=== PATIENT | male | born 1995 | race Caucasian/White ===

== ENCOUNTER 2020-07-03 09:29 | Emergency (ER) | payer OTHER ==
--- NOTE | 2020-07-03 10:13 | TELE ---
HPI - General Reason For Visit: COVID19 TESTING Time Seen by Provider: 07/03/20 10:09 History Source: Patient Exam Limitations: Clinical Condition - History of Present Illness Timing/Duration: unsure Associated Symptoms: reports: denies symptoms 07/03/20 10:10 Patient with no significant past medical history present to [facility] urgent care for COVID testing status post being scheduled for endoscopy and needs testing done 5 days prior to endoscopy. Patient report having endoscopy done on Friday. Denies fever, cough, shortness of breath. Denies recent travel or sick contact. Denies any other symptoms Review of Systems - Review of Systems Able to Perform ROS?: Yes Constitutional: No: Chills, Fever, Malaise HEENTM: No: Symptoms Reported, See HPI, Eye Pain, Blurred Vision, Tearing, Recent change in vision, Double Vision, Cataracts, Ear Pain, Ocular Prothesis, Ear Discharge, Nose Pain, Nose Congestion, Tinnitus, Nose Bleeding, Hearing Loss, Throat Pain, Throat Swelling, Mouth Pain, Dental Problems, Difficulty Swallowing, Mouth Swelling, Other Respiratory: No: Symptoms reported, See HPI, Cough, Orthopnea, Shortness of Breath, SOB with Exertion, SOB at Rest, Stridor, Wheezing, Productive cough, Hemoptysis, Other Cardiac (ROS): No: Symptoms Reported, See HPI, Chest Pain, Edema, Irregular Heart Rate, Lightheadedness, Palpitations, Syncope, Chest Tightness, Other ABD/GI: No: Symptoms Reported, Nausea, Vomiting Musculoskeletal: No: Symptoms Reported Integumentary: No: Symptoms Reported Neurological: No: Symptoms reported All Other Systems: Reviewed and Negative *Physical Exam - Physical Exam General Appearance: Yes: Nourished, Appropriately Dressed. No: Apparent Distress HEENT: positive: Normal ENT Inspection Respiratory/Chest: negative: Respiratory Distress, Accessory Muscle Use Musculoskeletal: positive: Normal Inspection Extremity: positive: Normal Inspection, Normal Range of Motion Integumentary: positive: Normal Color Neurologic: positive: Fully Oriented, Alert, Normal Mood/Affect, Normal Response, Motor Strength 03/07 - Medical Decision Making 07/03/20 10:11 Patient with no significant past medical history present to [facility] urgent care for COVID testing status post being scheduled for endoscopy and needs testing done 5 days prior to endoscopy. Patient report having endoscopy done on Friday. Denies fever, cough, shortness of breath. Denies recent travel or sick contact. Denies any other symptoms Patient is symptomatic at this time. Discussed self quarantine instructions if any symptoms. COVID tests ordered as per patient request. Patient to go to [facility] drive-through testing center today for testing. Patient stable for discharge Discharge Diagnosis at time of Disposition: Counseled about COVID-19 virus infection - Referrals Follow-up Referral(s): Bernardo Herrera [Primary Care Provider] - - Patient Instructions - Discharge Disposition: HOME Condition at time of Disposition: Stable
== END 2020-07-03 10:36 | disposition home or self-care (01) ==
LOC: JVIRT 09:29
DX: Z11.59 Encounter for screening for other viral diseases (principal)
CPT/HCPCS: Q3014-GT; U0003

== ENCOUNTER 2020-07-11 20:36 | Emergency (ER) | payer OTHER ==
--- NOTE | 2020-07-11 21:06 | TELE ---
HPI Do you have fever,cough or shortness of breath?: Yes - General Reason For Visit: COVID TESTING History Source: Patient Review of Systems - Review of Systems Able to Perform ROS?: Yes Constitutional: No: Fever Respiratory: No: Cough *Physical Exam - Physical Exam Respiratory/Chest: negative: Respiratory Distress Discharge Diagnosis at time of Disposition: Counseled about COVID-19 virus infection - Referrals Follow-up Referral(s): Bernardo Herrera [Primary Care Provider] - - Patient Instructions - Discharge Disposition: HOME Condition at time of Disposition: Stable
== END 2020-07-11 21:06 | disposition home or self-care (01) ==
LOC: JVIRT 20:36
DX: Z11.59 Encounter for screening for other viral diseases (principal)
CPT/HCPCS: Q3014-GT; U0003

== ENCOUNTER 2020-08-20 12:22 | Emergency (ER) | payer OTHER ==
--- NOTE | 2020-08-20 12:43 | TELE ---
HPI Do you have fever,cough or shortness of breath?: No - General Reason For Visit: COVID TESTING Time Seen by Provider: 08/20/20 12:40 History Source: Patient (Patient is asymptomatic and is requesting COVID-19 testing for preprocedure clearance for colonoscopy.) Exam Limitations: No Limitations - History of Present Illness 08/20/20 12:42 CONSTITUTIONAL: Absent: fever, chills, diaphoresis, generalized weakness, malaise, loss of appetite HEENT: Absent: rhinorrhea, nasal congestion, throat pain, throat swelling, difficulty swallowing, mouth swelling, ear pain, eye pain, visual changes CARDIOVASCULAR: Absent: chest pain, loss of consciousness, palpitations, irregular heart rate, peripheral edema RESPIRATORY: Absent: cough, shortness of breath, dyspnea with exertion, orthopnea, wheezing, stridor, hemoptysis GASTROINTESTINAL: Absent: abdominal pain, abdominal distension, nausea, vomiting, diarrhea SKIN: Absent: rash, itching, pallor NEUROLOGIC: Absent: headache, focal weakness or paresthesias, dizziness, unsteady gait, seizure, mental status changes, bladder or bowel incontinence PSYCHIATRIC: Absent: anxiety, depression, suicidal or homicidal ideation, hallucinations. GENERAL: Well developed, well nourished. Awake and alert. No acute distress. HEENT: Normocephalic, atraumatic. PERRLA, EOMI. NECK: Supple. Full ROM. PULMONARY: No evidence of respiratory distress. EXTREMITIES: No cyanosis. SKIN: Warm and dry. Normal capillary refill. No rashes. No jaundice. NEUROLOGICAL: Alert, awake, appropriate. PSYCHIATRIC: Cooperative. Good eye contact. Appropriate mood and affect. Past History - Medical History Allergies/Adverse Reactions: Allergies Allergy/AdvReac Type Severity Reaction Status Date / Time No Known Allergies Allergy Verified 08/20/20 12:41 - Medical Decision Making 08/20/20 12:42 A/P: 25-year-old male requesting COVID-19 testing prior to colonoscopy scheduled on Friday Patient is asymptomatic COVID-19 testing ordered COVID-19 counseling provided Discharge Portions of this note have been documented using voice recognition software. As a result, errors may occur in the court registry officer process. Effort has been made to correct all grammatical and court registry officer error, but some may have been missed which may produce sporadic inaccurate court registry officer or nonsensical phrases. Discharge Diagnosis at time of Disposition: Counseled about COVID-19 virus infection - Referrals Follow-up Referral(s): Bernardo Herrera [Primary Care Provider] - - Patient Instructions Additional Discharge Instructions: You were tested for COVID today. Please isolate yourself until your test results come back. Guidance has been provided in your discharge papers You should receive a call within 24 to 48 hours from our department with your results. Thank you for using our telehealth service today! - Discharge Disposition: HOME Condition at time of Disposition: Stable
== END 2020-08-20 12:43 | disposition home or self-care (01) ==
LOC: JVIRT 12:22
DX: Z03.818 Encounter for observation for suspected exposure to other biological agents ruled out (principal)
CPT/HCPCS: C9803; Q3014-GT; U0003

== ENCOUNTER 2021-02-22 10:10 | Inpatient (IN) | payer OTHER ==
[2021-02-15 17:39] VITALS: BMI 47.1
[2021-02-22] MEDS ORDERED: BUPIVACAINE HCL/PF 0.25% (2.5MG/ML) 10 ML VIAL ONE (10:25)
[2021-02-22] MEDS ORDERED: BUPIVACAINE LIPOSOME/PF (EXPAREL) 266 MG/20 ML VIAL ONE (10:56)
[2021-02-22] MEDS ORDERED: MIDAZOLAM HCL 2 MG/2 ML SINGLE DOSE VIAL ONE ×2 (10:56→11:09)
[2021-02-22] MEDS ORDERED: BUPIVACAINE HCL/PF 0.5% (5 MG/ML) 30 ML VIAL IJ ONE (10:56)
[2021-02-22] MEDS ORDERED: ROCURONIUM BROMIDE 50 MG/5 ML SYRINGE ONE ×2 (11:00→11:54)
[2021-02-22] MEDS ORDERED: fentaNYL CITRATE 250 MCG/5 ML VIAL ONE (11:00)
[2021-02-22] MEDS ORDERED: SUCCINYLCHOLINE CHLORIDE 200 MG/10 ML SYRINGE ONE (11:00)
[2021-02-22] MEDS ORDERED: PROPOFOL 20 ML ONE ×3 (11:00→11:12)
[2021-02-22] MEDS ORDERED: DEXAMETHASONE SOD PHOSPHATE 4 MG/1 ML VIAL ONE (11:01)
[2021-02-22] MEDS ORDERED: ONDANSETRON 4 MG/2 ML VIAL ONE (11:01)
[2021-02-22] MEDS ORDERED: ceFAZolin SODIUM 1 GM VIAL ONE ×3 (11:30→11:31)
[2021-02-22] MEDS ORDERED: BUPIVACAINE HCL 0.25% 125 MG/50 ML VIAL NR ONE ×2 (12:06→14:04)
[2021-02-22] MEDS ORDERED: ONDANSETRON 4 MG/2 ML VIAL IVPUSH PRN ×2 (13:17→14:22)
[2021-02-22] MEDS ORDERED: LACTATED RINGERS SOLUTION 1,000 ML IV SCH (13:30)
[2021-02-22] MEDS ORDERED: HYDROmorphone HCL/PF 1 MG/ML VIAL ONE ×2 (14:04→14:11)
[2021-02-22] MEDS ORDERED: NEOSTIGMINE METHYLSULFATE 0.5 MG/1 ML - 10 ML MDV ONE (14:20)
[2021-02-22] MEDS ORDERED: FAMOTIDINE 20 MG/50 ML IVPB 20 MG/50 ML MG IVPB ONE (14:20)
[2021-02-22] MEDS ORDERED: METOCLOPRAMIDE HCL INJECTION 10 MG/2 ML VIAL ONE (14:20)
[2021-02-22] MEDS ORDERED: HYDROmorphone HCl 2 MG/ML VIAL IVPB PRN (14:26)
[2021-02-22] MEDS ORDERED: SODIUM CHLORIDE 1,000 ML IV SCH (14:30)
[2021-02-22] MEDS: METOCLOPRAMIDE HCL INJECTION 10 MG/2 ML VIAL IVPUSH SCH ×2 (14:40→21:35)
[2021-02-22] MEDS ORDERED: FAMOTIDINE 20 MG PREMIXED IVPB IVPB ONE (14:45)
[2021-02-22 15:07] LABS: HEMATOCRIT 48.4 % (35.4-49); HEMOGLOBIN 16.1 GM/dl (11.7-16.9); MCHC 33.3 g/dl (32.0-35.9); MEAN CELL VOLUME 87.1 fl (80-96); MEAN PLT VOLUME 9.2 fl (7.5-11.1); PLATELET COUNT 382 K/MM3 (134-434); RBC 5.56 M/mm3 (4.00-5.60); RDW 12.1 % (11.9-15.9); WHITE BLOOD COUNT 16.6 K/mm3 (4.0-10.8)
[2021-02-22 15:14] LABS: ALBUMIN 4.2 g/dl (3.4-5.0); BILIRUBIN,TOTAL 0.6 mg/dl (0.2-1); CALCIUM 8.6 mg/dl (8.5-10); TOT PROT 7.4 g/dl (6.4-8.2)
[2021-02-22] MEDS ORDERED: LABETALOL HCL 5 MG/1 ML (100MG/20 ML VIAL) ONE (15:19)
[2021-02-22] MEDS ORDERED: LABETALOL HCL 5 MG/1 ML (100MG/20 ML VIAL) IVPUSH ONE (15:23)
[2021-02-22] MEDS: LABETALOL HCL 5 MG/1 ML (100MG/20 ML VIAL) IVPUSH ONE ×2 (15:23→16:15)
[2021-02-22] MEDS: HYDROmorphone HCL/PF 1 MG/ML VIAL IVPB PRN ×2 (18:10→22:27)
[2021-02-22] MEDS ORDERED: LABETALOL HCL 5 MG/1 ML (100MG/20 ML VIAL) IVPUSH PRN (18:26)
[2021-02-22] MEDS: FAMOTIDINE 20 MG/50 ML IVPB 20 MG/50 ML MG IVPB SCH (21:35)
[2021-02-22 22:41] LABS: HEMATOCRIT 43.1 % (35.4-49); HEMOGLOBIN 14.7 GM/dl (11.7-16.9); MCH 29.3 pg (25.7-33.7); MEAN CELL VOLUME 85.9 fl (80-96); MEAN PLT VOLUME 9.3 fl (7.5-11.1); PLATELET COUNT 352 K/MM3 (134-434); RBC 5.02 M/mm3 (4.00-5.60); RDW 12.2 % (11.9-15.9); WHITE BLOOD COUNT 16.4 K/mm3 (4.0-10.8)
[2021-02-22 22:50] LABS: ALBUMIN 3.9 g/dl (3.4-5.0); BILIRUBIN,TOTAL 0.8 mg/dl (0.2-1); CALCIUM 8.5 mg/dl (8.5-10); CREATININE 0.8 mg/dl (0.55-1.3); TOT PROT 6.8 g/dl (6.4-8.2)
[2021-02-23] MEDS: METOCLOPRAMIDE HCL INJECTION 10 MG/2 ML VIAL IVPUSH SCH ×2 (02:12→08:09)
[2021-02-23 08:07] LABS: HEMATOCRIT 39.9 % (35.4-49); HEMOGLOBIN 13.4 GM/dl (11.7-16.9); MCH 28.4 pg (25.7-33.7); MCHC 33.6 g/dl (32.0-35.9); MEAN CELL VOLUME 84.6 fl (80-96); PLATELET COUNT 350 K/MM3 (134-434); RBC 4.72 M/mm3 (4.00-5.60); RDW 11.9 % (11.9-15.9); WHITE BLOOD COUNT 12.2 K/mm3 (4.0-10.8)
[2021-02-23 08:13] LABS: CREATININE 0.7 mg/dl (0.55-1.3)
[2021-02-23 08:14] LABS: ALBUMIN 3.6 g/dl (3.4-5.0); BILIRUBIN,TOTAL 0.8 mg/dl (0.2-1); CALCIUM 8.4 mg/dl (8.5-10); TOT PROT 6.2 g/dl (6.4-8.2)
[2021-02-23 08:46] VITALS: BP 127/78; PULSE 86; TEMP 98.1
[2021-02-23] MEDS: FAMOTIDINE 20 MG/50 ML IVPB 20 MG/50 ML MG IVPB SCH (09:01)
[2021-02-23] MEDS: HYDROmorphone HCL/PF 1 MG/ML VIAL IVPB PRN (09:50)
[2021-02-23] MEDS ORDERED: oxyCODONE HCL 5 MG TABLET PO PRN (12:03)
[2021-02-23] MEDS ORDERED: ACETAMINOPHEN 325 MG TABLET (FP) PO PRN (12:03)
[2021-02-23] MEDS ORDERED: SODIUM CHLORIDE 1,000 ML IV SCH (12:15)
== END 2021-02-23 13:31 | disposition home or self-care (01) | DRG 621 ==
LOC: FM/S 10:10
PROVIDERS: ADMIT Surgery; ATTEND Surgery
PROC: 0FB24ZX Excision of Left Lobe Liver, Percutaneous Endoscopic Approach, Diagnostic (ICD-10-PCS; 2021-02-22)
PROC: 0DNW4ZZ Release Peritoneum, Percutaneous Endoscopic Approach (ICD-10-PCS; 2021-02-22)
PROC: 0DB64Z3 Excision of Stomach, Percutaneous Endoscopic Approach, Vertical (ICD-10-PCS; principal; 2021-02-22 11:47)
DX: E66.01 Morbid (severe) obesity due to excess calories (principal); Z68.33 Body mass index [BMI] 33.0-33.9, adult; R16.0 Hepatomegaly, not elsewhere classified; K66.0 Peritoneal adhesions (postprocedural) (postinfection)
CPT/HCPCS: 36415; 74240-TC-FY; 80053; 85027; 86850; 86900; 86901; 88305-TC; 94760

== ENCOUNTER 2023-06-14 10:10 | Emergency (ER) | payer OTHER ==
[2023-06-14] MEDS ORDERED: SODIUM CHLORIDE 1,000 ML IV STA (10:18)
[2023-06-14] MEDS ORDERED: ONDANSETRON 4 MG/2 ML VIAL IVPUSH ONE (10:19)
[2023-06-14 10:28] VITALS: BP 145/85; PULSE 83; RESP 16; TEMP 98.2; BMI 40.3
[2023-06-14] MEDS ORDERED: ONDANSETRON 4 MG/2 ML VIAL ONE (10:31)
[2023-06-14 10:43] LABS: HEMATOCRIT 49.7 % (35.4-49); HEMOGLOBIN 17.6 G/dL (11.7-16.9); MCH 30.2 pg (25.7-33.7); MCHC 35.4 g/dl (32.0-35.9); MEAN CELL VOLUME 85.3 fl (80-96); MEAN PLT VOLUME 7.8 fl (7.5-11.1); PLATELET COUNT 344.8 10^3/uL (134-434); RBC 5.83 10^6/uL (4.00-5.60); RDW 14.2 % (11.9-15.9); WHITE BLOOD COUNT 9.3 10^3/uL (4.0-10.8)
[2023-06-14 10:47] LABS: PLATELET ESTIMATE ADEQUATE
[2023-06-14 10:52] LABS: ALBUMIN 5.2 g/dl (3.4-5.0); BILIRUBIN,TOTAL 1.2 mg/dl (0.2-1); BLOOD UREA NITROGEN 14.2 mg/dl (7-18); CREATININE 0.9 mg/dl (0.6-1.3); POTASSIUM 3.8 mmol/L (3.5-5.1); SGPT/ALT 180.4 U/L (7-52); TOT PROT 8.1 g/dl (6.4-8.2)
== END 2023-06-14 12:30 | disposition home or self-care (01) ==
LOC: FER 10:10
PROC: 3E033NZ Introduction of Analgesics, Hypnotics, Sedatives into Peripheral Vein, Percutaneous Approach (ICD-10-PCS; principal; 2023-06-14)
PROC: 3E0337Z Introduction of Electrolytic and Water Balance Substance into Peripheral Vein, Percutaneous Approach (ICD-10-PCS; 2023-06-14)
DX: R11.2 Nausea with vomiting, unspecified (principal)
CPT/HCPCS: 36415; 80053; 83690; 85027; 99284-25

== ENCOUNTER 2024-04-23 09:59 | Emergency (ER) | payer OTHER ==
[2024-04-23 10:31] VITALS: BP 150/100; PULSE 90; RESP 16; TEMP 98.1; BMI 42.5
[2024-04-23] MEDS ORDERED: DIPHTH,PERTUSS(ACELL),TET 0.5 ML DISP.SYRIN IM ONE (10:32)
[2024-04-23] MEDS: DIPHTH,PERTUSS(ACELL),TET 0.5 ML DISP.SYRIN IM ONE (10:37)
== END 2024-04-23 10:39 | disposition home or self-care (01) ==
LOC: FER 09:59
PROC: 0XQPXZZ Repair Left Index Finger, External Approach (ICD-10-PCS; principal; 2024-04-23)
PROC: 3E0234Z Introduction of Serum, Toxoid and Vaccine into Muscle, Percutaneous Approach (ICD-10-PCS; 2024-04-23)
DX: S61.211A Laceration without foreign body of left index finger without damage to nail, initial encounter (principal); W26.8XXA Contact with other sharp object(s), not elsewhere classified, initial encounter; Z23 Encounter for immunization
CPT/HCPCS: 90715; 99284-25